=== PATIENT | male | born 1970 | race Caucasian/White ===

== ENCOUNTER 2016-08-12 13:29 | Emergency (ER) | payer OTHER ==
[~2016-08-12] VITALS: Ht 182.9 cm; Wt 107.1 kg
[~2016-08-12 13:29] MED LIST: CIPRO500 MG PO; ENDOCET 5-3251 EACH PO; FLOMAX0.4 MG PO; KETOROLAC TROME10 MG PO; MOTRIN800 MG PO; NAPROSYN500 MG PO; NORCO 5/3251 TABLET PO; PEPCID20 MG PO; PERCOCET 5/31 TABLET PO; TORADOL10 MG PO; TRAMADOL HCL50 MG PO; TYLENOL ARTHRI650 MG PO; ZANTAC150 MG PO; ZOFRAN ODT8 MG PO; ZOFRAN4 MG PO
[2016-08-12 13:58] LABS: ADD MIUA? YES; BILIRUBIN NEGATIVE; BLOOD LARGE; GLUCOSE (STRIP) NEGATIVE; KETONES NEGATIVE; LEUKOCYTES NEGATIVE; NITRITE NEGATIVE; PROTEIN (STRIP) 30; SPECIFIC GRAVITY 1.014 (1.000-1.030); UROBILINOGEN 0.2 MG/DL (0.2-1.0)
[2016-08-12 14:00] LABS: COLOR LT.RED ((YELLOW))
[2016-08-12 14:16] LABS: MUCUS NONE SEEN /LPF; RED BLOOD CELLS TNTC /HPF (0-5); WHITE BLOOD CELLS NONE SEEN /HPF (0-5)
[2016-08-12 14:17] LABS: BACTERIA NONE SEEN /HPF; EPITHELIAL CELLS RARE /HPF; UCUL ADDED? NO
[2016-08-12 14:26] LABS: BASOPHIL COUNT 0.1 K/uL (0-0.1); EOSINOPHIL (%) 2.4 % (0-5); EOSINOPHIL COUNT 0.2 K/uL (0-0.3); HEMATOCRIT 47.7 % (38.0-50.0); IMMATURE GRANULOCYTE (%) 0.5 % (0.0-0.7); INSTRUMENT ABS NEUTROPHIL CT 4.7 K/uL; LYMPHOCYTE COUNT 2.7 K/uL (1.0-2.8); MCH 27.9 PG (29.0-34.0); MCHC 32.7 G/DL (30.0-36.0); MCV 85.3 FL (86-99); MEAN PLAT.VOLUME 8.9 uM^3 (9.0-12.4); MONOCYTE (%) 7.6 % (3-12); MONOCYTE COUNT 0.6 K/uL (0-0.8); NEUTROPHIL (%) 56.1 % (45-76); NEUTROPHIL COUNT 4.7 K/uL (1.8-6.4); PLATELET COUNT 409 K/uL (156-360); RBC DIS.WIDTH-CV 12.6 % (11.8-14.6); RBC DIS.WIDTH-SD 38.8 % (39-53); RED BLOOD COUNT 5.59 M/uL (4.00-5.50); WHITE BLOOD COUNT 8.3 K/uL (4.1-10.2)
[2016-08-12 14:34] LABS: CHLORIDE 105 mEq/L (99-109); SODIUM 139 mEq/L (136-147)
[2016-08-12 14:36] LABS: GLUCOSE 88 mg/dL (70-99)
[2016-08-12 14:37] LABS: ANION GAP 8 MEQ/L (2-14)
[2016-08-12 14:38] LABS: TOTAL BILIRUBIN 0.5 mg/dL (0.0-1.0)
[2016-08-12 14:39] LABS: ALKALINE PHOSPHATASE 72 IU/L (3-129)
[2016-08-12 14:40] LABS: GFR ESTIMATE (CALCULATED) > 59 mL/min/
[2016-08-12 14:41] LABS: UREA NITROGEN (BUN) 15 mg/dL (9-23)
[2016-08-12 15:58] VITALS: BP 145/89
== END 2016-08-12 15:58 | disposition home or self-care (01) ==
LOC: EME 13:29
PROVIDERS: Physician Assistant
DX: N28.89 Other specified disorders of kidney and ureter (principal); N23 Unspecified renal colic; R31.9 Hematuria, unspecified; Z87.442 Personal history of urinary calculi
CPT/HCPCS: 74176; 80048; 80053; 81003; 85025; 85027; 99281; 99284; J1885